=== PATIENT | male | born 1940 | race Caucasian/White ===

== ENCOUNTER 2016-06-14 11:04 | Inpatient (IN) | payer MEDICARE, BC ==
[~2016-06-14] VITALS: Ht 22.9 cm; Wt 93.0 kg
[2016-08-02 16:25] LABS: HIV 1/2 Antibodies Non-Reactive; HIV-1p24 Antigen Non-Reactive
[2016-08-05] VITALS (11 sets, daily range): BP systolic 114–156; BP diastolic 55–75; PULSE 51–78; TEMP 98–98.2
[2016-08-05] MEDS ORDERED: VITAMIN B COMPL1 T16 PO (07:59)
[2016-08-05] MEDS ORDERED: VITAMIN D 1001000 IU PO (08:00)
[2016-08-05] MEDS ORDERED: HYTRIN 5MG C5 MG/CAP PO (08:01)
[2016-08-05] MEDS ORDERED: ZOCOR 10MG10 MG PO (08:01)
[2016-08-05] MEDS ORDERED: PROTONIX 40MG T40 MG PO (08:02)
[2016-08-05] MEDS ORDERED: TOPROL XL 25MG25 MG PO (08:02)
[2016-08-05] MEDS ORDERED: ZETIA 10MG TAB10 MG PO (08:03)
[2016-08-05] MEDS ORDERED: COZAAR100 MG PO (08:03)
[2016-08-05] MEDS ORDERED: LUNESTA3 MG PO (08:04)
[2016-08-05] MEDS ORDERED: NORVASC 10MG10 MG PO (08:04)
[2016-08-06 04:28] VITALS: BP 152/76; PULSE 88; TEMP 97.7
[2016-08-06 06:25] LABS: HEMATOCRIT 34.2 % (42.0-52.0); HEMOGLOBIN 11.5 g/dl (13.5-18.0)
[2016-08-06 08:07] VITALS: BP 141/61; PULSE 100; TEMP 97
[2016-08-06 13:14] VITALS: BP 134/54; PULSE 75; TEMP 97
[2016-08-06] MEDS ORDERED: ASPIRIN 32325 MG/TA1 PO (13:15)
[2016-08-06] MEDS ORDERED: NORCO 325 MG-7.1 TAB PO (13:16)
[2016-08-06] MEDS ORDERED: ROXICODONE 55 MG/TAB PO (13:16)
== END 2016-08-06 13:35 | disposition home or self-care (01) | DRG 483 ==
LOC: JCC 08-05 06:28
PROVIDERS: Orthopaedic Surgery
PROC: 0RRJ0JZ Replacement of Right Shoulder Joint with Synthetic Substitute, Open Approach (ICD-10-PCS; principal; 2016-08-05 11:30)
DX: M19.011 Primary osteoarthritis, right shoulder (principal); I10 Essential (primary) hypertension; Z95.2 Presence of prosthetic heart valve
CPT/HCPCS: A4315; A9284; C1713; C1776; J0171; J0690; J1100; J1885; J2270; J2370; J2405; J2704; J2710; J3010; J7120

== ENCOUNTER → 2016-08-02 | Outpatient (CLI) | payer MEDICARE, BC ==
[~2016-08-02] MED LIST: ASPIRIN 32325 MG/TA1 PO; COZAAR100 MG PO; HYTRIN 5MG C5 MG/CAP PO; LUNESTA3 MG PO; NORCO 325 MG-7.1 TAB PO; NORVASC 10MG10 MG PO; PROTONIX 40MG T40 MG PO; ROXICODONE 55 MG/TAB PO; TOPROL XL 25MG25 MG PO; VITAMIN B COMPL1 T16 PO; VITAMIN D 1001000 IU PO; ZETIA 10MG TAB10 MG PO; ZOCOR 10MG10 MG PO
== END ==
LOC: COL.LAB 14:47
DX: Z01.812 Encounter for preprocedural laboratory examination (principal); M25.811 Other specified joint disorders, right shoulder